=== PATIENT | female | born 1930 | race Caucasian/White ===

== ENCOUNTER 2016-05-31 00:49 | Emergency (ER) | payer MEDICARE, BC ==
[~2016-05-31] VITALS: Ht 167.6 cm; Wt 54.9 kg
[~2016-05-31 00:49] MED LIST: ALDACTONE 25MG25 M1; ALDACTONE 25MG25 M1 PO; AMBIEN 10MG10 MG PO; AMBIEN 5MG TABLE5 MG; AMBIEN 5MG TABLE5 MG PO; ANTACID1 CT2 PO; ARICEPT; ARICEPT 5MG; ARICEPT 5MG PO; ASPI325T6 PO; ASPIRIN 32325 MG/TAB PO; ASPIRIN E.C. 8181 MG PO; BONIVA PO; BONIVA150 MG PO; CALCIUM 600 W/V1 TAB PO; CALCIUM 600600 MG PO; CALCIUM1 CAP PO; CEFTIN 250250 MG/TAB PO; CENTRUM SILVER1 CTB PO; CENTRUM SILVER1 TA1 PO; COLACE 100100 MG/CAP; COLACE 100100 MG/CAP PO; CPAP; D-31000 IU PO; DARVON; DIGOXIN0.125 MG PO; DUO-KAPS1 CAP PO; FERROUS SULFAT324 M1 PO; FLEXERIL10 MG PO; FLOVENT 110MCG7.9 GM IH; FLOVENT DI50 MCG/Act IH; GABAPENTIN; GABAPENTIN100 MG PO; HORIZANT600 MG PO; IMDUR 30MG30 MG/TAB PO; IMDUR30 MG PO; IRON325 M1 PO; LANOXIN 0.120.125 MG PO; LASIX 20MG TABL20 MG PO; LASIX 40MG TABL40 MG PO; LASIX 80MG TABL80 MG PO; LASIX40 MG PO; LASIX80 MG PO; LIDODERM 5% PATC1 EA TP; LOW DOSE ASPIRI81 MG PO; MILK OF MA400 MG/51 PO; MIRAPEX 0.0.125 MG/T PO; MIRAPEX0.125 MG PO; MIRAPEX0.25 MG PO; MULTIPLE VITAMI1 CAP PO; NAMENDA XR 28MG PO; NAMENDA5 MG PO; NEURONTIN100 MG/CAP PO; NEURONTIN300 MG PO; NEURONTIN300 MG/CAP PO; NEURONTIN600 MG/TAB PO; NEUROPATHY MED; NITRO-DUR0.4 MG/HR TD; NITROQUICK0.4 MG SL; NORCO 325 MG-51 TAB PO; OSCAL 500 TAB500 MG PO; PEPCID 20MG TAB20 MG; PRAVACHOL 20MG20 MG PO; PRAVACHOL10 MG PO; PREMARIN0.3 MG PO; PREMARIN0.625 MG PO; PRILOSEC 20MG20 MG PO; PRILOSEC20 MG PO; PRINIVIL2.5 MG PO; PROAIR HFA0.09 MG/AC IH; PROTONIX20 MG; PROTONIX20 MG PO; PROVENTIL0.09 MG/A1 IH; PROVERA2.5 MG PO; SONATA5 MG; TOPROL; TOPROL XL 25MG25 MG PO; TOPROL XL25 MG PO; TYLENOL 325MG325 MG PO; TYLENOL PM EXTR1 TA1 PO; UNABLE; VIT D3; VITAMIN D31000 I1 PO; VITAMIN D31000 IU PO; ZESTRIL2.5 MG PO; ZITHROMAX 250M250 MG PO; ZOCOR 40MG40 MG; ZOCOR 40MG40 MG PO; ZOCOR40 MG PO; ZYRTEC 10MG10 MG PO; [UNRECOGNIZED DRUG - OTHER] PO
[2016-05-31 01:06] VITALS: TEMP 98.2
[2016-05-31 01:52] LABS: BASO % 0.5 % (0.0-2.0); EOS # 0.1 (0.0-0.7); EOS % 0.7 % (0-4.0); GRAN # 6.1 (1.4-6.5); GRAN % 70.2 % (42.2-75.2); LYMPH # 1.4 (1.2-3.4); MEAN CELL VOLUME 94 fl (80.0-100.0); MEAN CORPUSCULAR HGB CONC 33 g/dl (33.0-37.0); MEAN PLATELET VOLUME 10.2 fl (7.4-10.4); MONO # 1.1 (0.1-0.6); MONO % 12.4 % (1.7-9.3); PLATELET COUNT 224 K/mm3 (130-400); RED BLOOD COUNT 3.85 M/mm3 (4.10-5.30); REDCELL DISTRIBUTION WIDTH-CV 12.8 % (11.5-14.5); WHITE BLOOD COUNT 8.6 K/mm3 (4.8-10.8)
[2016-05-31 01:54] LABS: HEMATOCRIT 36.2 % (37.0-47.0); HEMOGLOBIN 11.8 g/dl (12.5-16.0); MEAN CORPUSCULAR HEMOGLOBIN 31 pg (27.0-31.0)
[2016-05-31 01:59] LABS: INR 1.1 (0.8-3.0); PROTHROMBIN TIME 12.1 SECONDS (9.7-12.8)
[2016-05-31 02:01] LABS: PARTIAL THROMBOPLASTIN TIME 19.9 SECONDS (26.0-37.0)
[2016-05-31 02:02] LABS: ADJUSTED CALCIUM 9.5 mg/dL (8.4-10.2); ALANINE AMINOTRANSFERASE 25 U/L (9-52); ALBUMIN 3.9 gm/dL (3.5-5.0); ALKALINE PHOSPHATASE 72 U/L (50-136); ANION GAP 12 mmol/L (7-16); BILIRUBIN,TOTAL 0.8 mg/dL (0.0-1.0); BLOOD UREA NITROGEN 31 mg/dL (7-17); CALCIUM 9.4 mg/dL (8.4-10.2); CARBON DIOXIDE 30 mmol/L (22-30); CHLORIDE 97 mmol/L (98-107); CREATININE, serum 1.66 mg/dL (0.52-1.25); GLUCOSE 107 mg/dL (74-106); POTASSIUM 3.9 mmol/L (3.4-5.0); SODIUM 139 mmol/L (137-145); TOTAL PROTEIN 7.5 gm/dL (6.4-8.2)
[2016-05-31 02:17] LABS: TROPONIN-I < 0.012 ng/mL (0.000-0.034)
[2016-05-31 04:13] VITALS: BP 106/47; PULSE 70
== END 2016-05-31 04:15 | disposition home or self-care (01) ==
LOC: COL.ER 00:49
PROVIDERS: Emergency Medicine
DX: R07.89 Other chest pain (principal); I12.9 Hypertensive chronic kidney disease with stage 1 through stage 4 chronic kidney disease, or unspecified chronic kidney disease; N18.9 Chronic kidney disease, unspecified; Z95.810 Presence of automatic (implantable) cardiac defibrillator

== ENCOUNTER → 2016-07-27 | Outpatient (REF) ==
[~2016-07-27] MED LIST changes: +ALBUTEROL1.25 MG/3 IH; +NAMENDA 10MG TA10 MG PO; +NITROSTAT0.4 MG/TAB SL
== END ==
LOC: ZCOL.LAB 14:54
DX: Z01.89 Encounter for other specified special examinations (principal)

== ENCOUNTER → 2016-07-27 | Outpatient (REF) ==
[2016-07-27 15:04] LABS: BASO % 0.3 % (0.0-2.0); EOS # 0.1 (0.0-0.7); EOS % 0.6 % (0-4.0); GRAN # 6.4 (1.4-6.5); GRAN % 72.8 % (42.2-75.2); LYMPH # 1.1 (1.2-3.4); LYMPH % 12.6 % (20.0-51.0); MEAN CELL VOLUME 94 fl (80.0-100.0); MEAN CORPUSCULAR HGB CONC 32 g/dl (33.0-37.0); MEAN PLATELET VOLUME 10.3 fl (7.4-10.4); MONO # 1.2 (0.1-0.6); MONO % 13.4 % (1.7-9.3); PLATELET COUNT 190 K/mm3 (130-400); RED BLOOD COUNT 3.69 M/mm3 (4.10-5.30); REDCELL DISTRIBUTION WIDTH-CV 13.4 % (11.5-14.5); WHITE BLOOD COUNT 8.8 K/mm3 (4.8-10.8)
[2016-07-27 15:08] LABS: HEMATOCRIT 34.7 % (37.0-47.0); HEMOGLOBIN 11.1 g/dl (12.5-16.0); MEAN CORPUSCULAR HEMOGLOBIN 30 pg (27.0-31.0)
== END ==
LOC: ZCOL.LAB 14:58
PROVIDERS: Internal Medicine
DX: Z01.89 Encounter for other specified special examinations (principal)

== ENCOUNTER 2016-11-08 05:14 | Emergency (ER) | payer MEDICARE, BC ==
[~2016-11-08] VITALS: Ht 167.6 cm; Wt 54.5 kg
[~2016-11-08 05:14] MED LIST changes: -ALBUTEROL1.25 MG/3 IH; -NAMENDA 10MG TA10 MG PO; -NITROSTAT0.4 MG/TAB SL
[2016-11-08 05:18] VITALS: TEMP 98.1
[2016-11-08 05:45] LABS: BASO # 0.1 (0.0-0.2); BASO % 0.7 % (0.0-2.0); EOS # 0.2 (0.0-0.7); EOS % 2.4 % (0-4.0); GRAN # 4.3 (1.4-6.5); GRAN % 52.8 % (42.2-75.2); LYMPH # 2.4 (1.2-3.4); LYMPH % 28.8 % (20.0-51.0); MEAN CELL VOLUME 94 fl (80.0-100.0); MEAN CORPUSCULAR HGB CONC 32 g/dl (33.0-37.0); MEAN PLATELET VOLUME 9.6 fl (7.4-10.4); MONO # 1.2 (0.1-0.6); MONO % 14.9 % (1.7-9.3); PLATELET COUNT 200 K/mm3 (130-400); RED BLOOD COUNT 3.78 M/mm3 (4.10-5.30); REDCELL DISTRIBUTION WIDTH-CV 14.6 % (11.5-14.5); WHITE BLOOD COUNT 8.2 K/mm3 (4.8-10.8)
[2016-11-08 05:47] LABS: HEMATOCRIT 35.7 % (37.0-47.0); HEMOGLOBIN 11.4 g/dl (12.5-16.0); MEAN CORPUSCULAR HEMOGLOBIN 30 pg (27.0-31.0)
[2016-11-08 05:54] LABS: ANION GAP 9 mmol/L (7-16); BLOOD UREA NITROGEN 23 mg/dL (7-17); CALCIUM 8.9 mg/dL (8.4-10.2); CARBON DIOXIDE 25 mmol/L (22-30); CHLORIDE 103 mmol/L (98-107); CREATININE, serum 1.26 mg/dL (0.52-1.25); GLUCOSE 91 mg/dL (74-106); POTASSIUM 3.9 mmol/L (3.4-5.0); SODIUM 138 mmol/L (137-145)
[2016-11-08 06:08] LABS: TROPONIN-I < 0.012 ng/mL (0.000-0.034)
[2016-11-08] MEDS ORDERED: NORCO 325 MG-51 TAB PO (06:12)
[2016-11-08] MEDS ORDERED: NAMENDA 10MG TA10 MG PO (06:12)
[2016-11-08] MEDS ORDERED: ALBUTEROL1.25 MG/3 IH (06:24)
[2016-11-08] MEDS ORDERED: NITROSTAT0.4 MG/TAB SL (06:24)
[2016-11-08 10:03] VITALS: BP 133/58; PULSE 78
== END 2016-11-08 09:29 | disposition home or self-care (01) ==
LOC: COL.ER 05:14
PROVIDERS: Emergency Medicine
DX: M79.605 Pain in left leg (principal); I25.10 Atherosclerotic heart disease of native coronary artery without angina pectoris; I50.9 Heart failure, unspecified; J44.9 Chronic obstructive pulmonary disease, unspecified; K21.9 Gastro-esophageal reflux disease without esophagitis; Z79.82 Long term (current) use of aspirin; Z95.0 Presence of cardiac pacemaker; Z98.890 Other specified postprocedural states; Z95.5 Presence of coronary angioplasty implant and graft